=== PATIENT | male | born 1985 | race Caucasian/White ===

== ENCOUNTER 2017-06-17 20:19 | Emergency (ER) | payer SELFPAY ==
--- NOTE | 2017-06-17 20:33 | PDOC ---
Rapid Medical Evaluation Time Seen by Provider: 06/17/17 20:32 Medical Evaluation: Allergies Allergy/AdvReac Type Severity Reaction Status Date / Time No Known Allergies Allergy Verified 01/22/13 05:11 06/17/17 20:32 I have performed a brief in-person evaluation of this patient. The patient presents with a chief complaint of: left ankle pain, inverted after basketball game yesterday Pt presents with crutches Pertinent physical exam findings:Left ankle/lat +pain/swelling.. Neg pain to prox fib I have ordered the following: xray left ankle The patient will proceed to the ED for further evaluation:
[2017-06-17 20:35] VITALS: BP 150/98; PULSE 76; TEMP 97.9; BMI 22.6
--- NOTE | 2017-06-17 21:19 | PDOC ---
History of Present Illness - General Chief Complaint: Injury Stated Complaint: ANKLE INJURY Time Seen by Provider: 06/17/17 20:32 History Source: Patient Exam Limitations: No Limitations - History of Present Illness Initial Comments: 06/18/17 00:33 32-year-old male presents to the emergency department with crutches complaining of pain to the left lateral ankle. Patient states while playing basketball last evening, he inverted his left ankle causing 7/10 dull nonradiating intermittent discomfort. Pain is exacerbated on weight-bear and alleviated minimally at rest with elevation/ice application. Patient denies any knee, Achilles or foot pain. Patient denies any other injuries. Past History - Past Medical History Allergies/Adverse Reactions: Allergies Allergy/AdvReac Type Severity Reaction Status Date / Time No Known Allergies Allergy Verified 06/17/17 20:32 Home Medications: Ambulatory Orders Albuterol Sulfate Inhaler - [Ventolin HFA Inhaler -] 1 - 2 inh IH QID #1 inhaler 01/22/13 - Suicide/Smoking/Psychosocial Hx Smoking Status: Yes Smoking History: Never smoked Number of Cigarettes Smoked Daily: 3 Review of Systems - Review of Systems Able to Perform ROS?: Yes Comments:: 06/18/17 00:34 CONSTITUTIONAL: Absent: fever, chills, diaphoresis, generalized weakness, malaise, loss of appetite HEENT: Absent: rhinorrhea, nasal congestion, throat pain, throat swelling, difficulty swallowing, mouth swelling, ear pain, eye pain, visual Changes CARDIOVASCULAR: Absent: chest pain, loss of consciousness, palpitations, irregular heart rate, peripheral edema RESPIRATORY: Absent: cough, shortness of breath, dyspnea with exertion, orthopnea, wheezing, stridor, hemoptysis GASTROINTESTINAL: Absent: abdominal pain, abdominal distension, nausea, vomiting, diarrhea, constipation, melena, hematochezia GENITOURINARY: Absent: dysuria, frequency, urgency, hesitancy, hematuria, flank pain, genital pain MUSCULOSKELETAL: Absent: myalgia, arthralgia, joint swelling SKIN: Absent: rash, itching, pallor left ankle pain /laterally Is the patient limited Vietnamese proficient: No *Physical Exam - Vital Signs Last Vital Signs Temp Pulse Resp BP Pulse Ox 97.9 F 76 18 150/98 98 06/17/17 20:33 06/17/17 20:33 06/17/17 20:33 06/17/17 20:33 06/17/17 20:33 - Physical Exam Comments: 06/18/17 00:34 GENERAL: Well developed, well nourished. Awake and alert. No acute distress. HEENT: Normocephalic, atraumatic. PERRLA, EOMI. No conjunctival pallor. Sclera are non- icteric. Moist mucous membranes. Oropharynx is clear. NECK: Supple. Full ROM. No JVD. Carotid pulses 2+ and symmetric, without bruits. No thyromegaly. No lymphadenopathy. CARDIOVASCULAR: Regular rate and rhythm. No murmurs, rubs, or gallops. Distal pulses are 2+ and symmetric. PULMONARY: No evidence of respiratory distress. Lungs clear to auscultation bilaterally. No wheezing, rales or rhonchi. ABDOMINAL: Soft. Non-tender. Non-distended. No rebound or guarding. No organomegaly. Normoactive bowel sounds. MUSCULOSKELETAL Normal range of motion at all joints. No bony deformities or tenderness. No CVA tenderness. EXTREMITIES: No cyanosis. No clubbing. No edema. No calf tenderness. SKIN: Warm and dry. Normal capillary refill. No rashes. No jaundice. Left ankle +swelling lat malleolus Decreased R.O.M./pain 2+dp pulse left achilles intact neg bolden Left foot: 2+ pedal pulse neg pain to base of 5th mt Left knee F.R.O.M. +neg pain to prox fib ED Treatment Course - RADIOLOGY Radiology Studies Ordered: Category Date Time Status ANKLE-LEFT [RAD] Stat Radiology 06/17/17 20:33 Taken Radiograph Interpretation: 06/18/17 00:34 Xray left ankle: distal fibular transverse non displaced fx Progress Note - Progress Note Progress Note: Left ankle sugar tong *DC/Admit/Observation/Transfer Diagnosis at time of Disposition: Closed left ankle fracture Qualifiers: Encounter type: initial encounter Qualified Code(s): S82.892A - Other fracture of left lower leg, initial encounter for closed fracture - Discharge Dispostion Disposition: HOME Condition at time of disposition: Good Admit: No - Referrals Referrals: Josse Hayden MD [Staff Physician] - - Patient Instructions Printed Discharge Instructions: DI for Ankle Fracture Additional Instructions: Rest Elevate Tylenol alternating with motrin as needed for pain Crutches/No weight bear Return to the ER for severe/persisent/worsening symptoms - Post Discharge Activity
== END 2017-06-17 21:37 | disposition home or self-care (01) ==
LOC: JERFT 20:19
PROC: 2W3RX1Z Immobilization of Left Lower Leg using Splint (ICD-10-PCS; principal; 2017-06-17)
DX: S82.832A Other fracture of upper and lower end of left fibula, initial encounter for closed fracture (principal); X50.1XXA Overexertion from prolonged static or awkward postures, initial encounter; Y93.67 Activity, basketball; Y92.310 Basketball court as the place of occurrence of the external cause; Y99.8 Other external cause status
CPT/HCPCS: 73610-TC-LT; 99282-25

== ENCOUNTER 2022-09-13 00:28 | Emergency (ER) | payer OTHER ==
[2022-09-13 00:56] VITALS: BP 135/90; PULSE 105; RESP 20; TEMP 98.3; BMI 21.7
== END 2022-09-13 03:16 | disposition home or self-care (01) ==
LOC: JER 00:28
DX: S60.041A Contusion of right ring finger without damage to nail, initial encounter (principal); S61.214A Laceration without foreign body of right ring finger without damage to nail, initial encounter; M79.641 Pain in right hand; Y04.0XXA Assault by unarmed brawl or fight, initial encounter
CPT/HCPCS: 73110-TC-RT-FY; 73130-TC-RT-FY; 99283-25

== ENCOUNTER 2023-03-05 04:01 | Emergency (ER) | payer OTHER ==
[2023-03-05 04:16] VITALS: BP 124/99; PULSE 84; RESP 18; TEMP 98; BMI 22.6
== END 2023-03-05 05:09 | disposition home or self-care (01) ==
LOC: JER 04:01
DX: R10.9 Unspecified abdominal pain (principal)
CPT/HCPCS: 99282-25